=== PATIENT | female | born 1945 | race Caucasian/White ===

== ENCOUNTER 2017-10-13 15:21 | Inpatient (IN) | payer MEDICARE ==
[~2017-10-13] VITALS: Ht 165.1 cm; Wt 85.6 kg
[2017-10-13 16:09] VITALS: BP 170/72; PULSE 84; RESP 18; TEMP 98.6; O2SAT 100
[2017-10-13] MEDS ORDERED: SODIUM CHLOR 0.9% 1000 ML INJ 1,000 ML IV SCH (17:01)
[2017-10-13] MEDS ORDERED: AMLO5TAB2 PO (17:13)
[2017-10-13] MEDS ORDERED: CYAN1TAB24 PO (17:13)
[2017-10-13] MEDS ORDERED: APIX5TAB PO (17:13)
[2017-10-13] MEDS ORDERED: VITA250C3 CHEW (17:13)
[2017-10-13] MEDS ORDERED: CALC600T55 CHEW (17:13)
[2017-10-13] MEDS ORDERED: GLUC100013 (17:13)
[2017-10-13] MEDS ORDERED: MULT-65 PO (17:13)
[2017-10-13] MEDS ORDERED: BIOT10TA PO (17:13)
[2017-10-13] MEDS ORDERED: SODIUM CHLORIDE 0.9% FLUSH 10 ML FLUSH IV FLUSH PRN ×2 (17:15→21:00)
[2017-10-13] MEDS ORDERED: LOVA20TA PO (17:30)
[2017-10-13 17:33] LABS: BILIRUBIN, URINE NEG (NEG); BLOOD, URINE NEG (NEG); GLUCOSE,URINE NEG (NEG); KETONE, URINE TRACE mg/dL (NEG); NITRITE,URINE NEG (NEG); PH, URINE 5.5 (5.0-8.5); URINE COLOR YELLOW (YELLW/STRAW); URINE LEUKOCYTE ESTERASE NEG (NEG)
[2017-10-13 17:41] LABS: CHLORIDE 105 MEQ/L (98-107); SODIUM (NA) 137 MEQ/L (136-145)
[2017-10-13 17:44] LABS: TRANSITIONAL EPI CELLS, URINE 0-5 /hpf
[2017-10-13 17:45] LABS: ALBUMIN 3.6 GM/DL (3.4-5.0); BICARBONATE 22.6 MEQ/L (21.0-32.0); BLOOD UREA NITROGEN 11 MG/DL (7-18); CALCIUM 9.5 MG/DL (8.5-10.1); GLUCOSE,RANDOM 90 MG/DL (74-106)
[2017-10-13 17:48] LABS: ALT (GPT) 16 U/L (10-53); AST (GOT) 16 U/L (15-37); CREATININE 0.81 MG/DL (0.50-1.00); GLOMERULAR FILTRATION RATE 69 ML/MIN (>89)
[2017-10-13 17:50] LABS: TOTAL BILIRUBIN ADULT 1.3 MG/DL (0.2-1.0); TOTAL PROTEIN 7.3 GM/DL (6.4-8.2)
[2017-10-13 17:51] LABS: ALKALINE PHOSPHATASE 70 U/L (45-117)
[2017-10-13 17:52] LABS: AUTOMATED NEUTROPHIL # 7.6 TH/MM3 (1.8-7.7); BASOPHIL # 0.1 TH/MM3 (0-0.2); BASOPHIL % 1.1 % (0.0-2.0); EOSINOPHIL % 0.4 % (0.0-4.0); HEMATOCRIT 36.2 % (35.0-46.0); LYMPH % 13.8 % (9.0-44.0); LYMPHOCYTE # 1.3 TH/MM3 (1.0-4.8); MEAN CELL VOLUME 93.5 FL (80.0-100.0); MEAN CORPUSCULAR HEMOGLOBIN 30.9 PG (27.0-34.0); MEAN PLATELET VOLUME 9.2 FL (7.0-11.0); MONO % 5.6 % (0.0-8.0); MONOCYTE # 0.5 TH/MM3 (0-0.9); NEUT % 79.1 % (16.0-70.0); PLATELET COUNT 199 TH/MM3 (150-450); RED BLOOD COUNT 3.88 MIL/MM3 (4.00-5.30); RED CELL DISTRIBUTION WIDTH 12.3 % (11.6-17.2); WHITE BLOOD COUNT 9.5 TH/MM3 (4.0-11.0)
[2017-10-13 18:20] VITALS: BP 138/59; PULSE 72; RESP 16; O2SAT 96
--- NOTE | 2017-10-13 18:49 | PD ---
HPI Chief Complaint: Abdominal Pain Time Seen by Provider: 16:56 Travel History International Travel<30 days: No Contact w/Intl Traveler<30days: No Traveled to known affect area: No History of Present Illness HPI 72-year-old female arrives with abdominal pain in the left lower quadrant. She has had chills and nausea. She denies diarrhea and vomiting. Duration is been about 3 days. The pain is constant and worse with palpation. She's had no bloody stool. Patient has no urinary complaint. PFSH Social History Tobacco Use: No Allergies-Medications (Allergen,Severity, Reaction): Coded Allergies: Penicillins (Verified Allergy, Unknown, 10/13/17) Reported Meds & Prescriptions Reported Meds & Active Scripts Active Reported Lovastatin 20 Mg Tab 20 Mg PO DAILY Multi-Vitamin Daily (Multiple Vitamin) 1 Tab Tab 1 Tab PO DAILY Amlodipine (Amlodipine Besylate) 5 Mg Tab 5 Mg PO DAILY Eliquis (Apixaban) 5 Mg Tab 5 Mg PO BID B12 (Cyanocobalamin) 1,000 Mcg Tab 1,000 Mcg PO BID Calcium + D3 (Calcium Carbonate-Vitamin D) 600-200 Mg-Unit Tab 1 Tab CHEW BID Glucosamine (Glucosamine Sulfate) 1,000 Mg Cap 2,000 Mg BID Vitamin C (Ascorbic Acid) 250 Mg Chew 1,000 Mg CHEW DAILY Biotin 10 Mg Tab 10 Mg PO DAILY Review of Systems Except as stated in HPI: all other systems reviewed are Neg Physical Exam Narrative GENERAL: 72-year-old female pleasant well-nourished well-developed no acute distress ambulatory Vital Signs Date Time Temp Pulse Resp B/P (MAP) Pulse Ox O2 Delivery O2 Flow Rate FiO2 10/13/17 18:20 72 16 138/59 (85) 96 Room Air 10/13/17 17:05 Room Air 10/13/17 16:09 98.6 84 18 170/72 (104) 100 SKIN: Warm and dry. HEAD: Atraumatic. Normocephalic. EYES: Pupils equal and round. No scleral icterus. No injection or drainage. ENT: No nasal bleeding or discharge. Mucous membranes pink and moist. NECK: Trachea midline. No JVD. CARDIOVASCULAR: Regular rate and rhythm. RESPIRATORY: No accessory muscle use. Clear to auscultation. Breath sounds equal bilaterally. GASTROINTESTINAL: Abdomen is soft. There is tenderness in the all quadrants. MUSCULOSKELETAL: Extremities without clubbing, cyanosis, or edema. No obvious deformities. NEUROLOGICAL: Awake and alert. No obvious cranial nerve deficits. Motor grossly within normal limits. Five out of 5 muscle strength in the arms and legs. Normal speech. PSYCHIATRIC: Appropriate mood and affect; insight and judgment normal. Data Data Last Documented VS Vital Signs Date Time Temp Pulse Resp B/P (MAP) Pulse Ox O2 Delivery O2 Flow Rate FiO2 10/13/17 19:00 20 10/13/17 19:00 70 131/62 (85) 100 10/13/17 18:20 Room Air 10/13/17 16:09 98.6 Orders Orders Complete Blood Count With Diff (10/13/17 17:01) Comprehensive Metabolic Panel (10/13/17 17:01) Lipase (10/13/17 17:) Urinalysis - C+S If Indicated (10/13/17 17:01) Ct Abd/Pel W Iv Contrast(Rout) (10/13/17 17:01) Iv Access Insert/Monitor (10/13/17 17:01) Ecg Monitoring (10/13/17 17:01) Oximetry (10/13/17 17:01) Sodium Chlor 0.9% 1000 Ml Inj (Ns 1000 M (10/13/17 17:01) Iohexol 350 Inj (Omnipaque 350 Inj) (10/13/17 19:16) Lactic Acid (10/13/17 20:07) Blood Culture (10/13/17 20:07) Ciprofloxacin 400 Mg Premix (Cipro 400 M (10/13/17 20:15) Metronidazole 500 Mg Inj (Flagyl 500 Mg (10/13/17 20:15) Place In Observation (10/13/17 ) Vital Signs (Adult) Q4H (10/13/17 20:46) Activity Oob With Assistance (10/13/17 20:46) Mortgage Loan Reviewer / Telemetry .CONTINUOUS (10/13/17 20:46) Diet Npo (10/14/17 Breakfast) Sodium Chlor 0.45% 1000 Ml Inj (1/2 Ns 1 (10/13/17 21:00) Sodium Chloride 0.9% Flush (Ns Flush) (10/13/17 21:00) Sodium Chloride 0.9% Flush (Ns Flush) (10/13/17 21:00) Ondansetron Inj (Zofran Inj) (10/13/17 21:00) Basic Metabolic Panel (Bmp) (10/14/17 06:00) Complete Blood Count With Diff (10/14/17 06:00) Pt Request For Service (10/13/17 20:46) Case Management Consult (10/13/17 20:46) Naloxone Inj (Narcan Inj) (10/13/17 21:00) Ciprofloxacin 400 Mg Premix (Cipro 400 M (10/14/17 09:00) Metronidazole 500 Mg Inj (Flagyl 500 Mg (10/14/17 02:00) Invasive Rad Dept Consult (10/13/17 ) Admit Order (Ed Use Only) (10/13/17 ) Mortgage Loan Reviewer / Telemetry [email or web address] (10/13/17 20:50) Activity Oob With Assistance (10/13/17 20:50) Notify Dr: Other (10/13/17 20:50) Labs Laboratory Tests Test 10/13/17 17:10 10/13/17 17:20 10/13/17 20:15 Urine Color YELLOW Urine Turbidity CLEAR Urine pH 5.5 Urine Specific [place] LESS/EQUAL 1.005 Urine Protein NEG mg/dL Urine Glucose (UA) NEG mg/dL Urine Ketones TRACE mg/dL Urine Occult Blood NEG Urine Nitrite NEG Urine Bilirubin NEG Urine Urobilinogen 0.2 MG/DL Urine Leukocyte Esterase NEG Urine Transitional Epithelial Cells 0-5 /hpf Microscopic Urinalysis Comment CULT NOT INDICATED White Blood Count 9.5 TH/MM3 Red Blood Count 3.88 MIL/MM3 Hemoglobin 12.0 GM/DL Hematocrit 36.2 % Mean Corpuscular Volume 93.5 FL Mean Corpuscular Hemoglobin 30.9 PG Mean Corpuscular Hemoglobin Concent 33.0 % Red Cell Distribution Width 12.3 % Platelet Count 199 TH/MM3 Mean Platelet Volume 9.2 FL Neutrophils (%) (Auto) 79.1 % Lymphocytes (%) (Auto) 13.8 % Monocytes (%) (Auto) 5.6 % Eosinophils (%) (Auto) 0.4 % Basophils (%) (Auto) 1.1 % Neutrophils # (Auto) 7.6 TH/MM3 Lymphocytes # (Auto) 1.3 TH/MM3 Monocytes # (Auto) 0.5 TH/MM3 Eosinophils # (Auto) 0.0 TH/MM3 Basophils # (Auto) 0.1 TH/MM3 CBC Comment DIFF FINAL Differential Comment Blood Urea Nitrogen 11 MG/DL Creatinine 0.81 MG/DL Random Glucose 90 MG/DL Total Protein 7.3 GM/DL Albumin 3.6 GM/DL Calcium Level 9.5 MG/DL Alkaline Phosphatase 70 U/L Aspartate Amino Transf (AST/SGOT) 16 U/L Alanine Aminotransferase (ALT/SGPT) 16 U/L Total Bilirubin 1.3 MG/DL Sodium Level 137 MEQ/L Potassium Level 3.9 MEQ/L Chloride Level 105 MEQ/L Carbon Dioxide Level 22.6 MEQ/L Anion Gap 9 MEQ/L Estimat Glomerular Filtration Rate 69 ML/MIN Lipase 107 U/L Lactic Acid Level 0.8 mmol/L MDM Medical Decision Making Medical Screen Exam Complete: Yes Emergency Medical Condition: Yes Differential Diagnosis Gastritis, pancreatitis, appendicitis, acute cholecystitis, ascending cholangitis, AAA, perforated viscous, mesenteric ischemia, hepatitis, cystitis, hydronephrosis/hydroureter/nephroureter calculus, mesenteric adenitis, biliary colic Narrative Course CBC & BMP Diagram 10/13/17 17:20 Total Protein 7.3, Albumin 3.6, Calcium Level 9.5, Alkaline Phosphatase 70, Aspartate Amino Transf (AST/SGOT) 16, Alanine Aminotransferase (ALT/SGPT) 16, Total Bilirubin 1.3 H Lipase is 107 Urinalysis no UTI Case discussed with the oncoming provider at 7 PM. Estuardo Bond MD Oct 13, 2017 18:49
[2017-10-13 19:00] VITALS: BP 131/62; PULSE 70; RESP 20; O2SAT 100
[2017-10-13] MEDS ORDERED: IOHEXOL 350 MG/ML 10 ML VIAL (for RAD DIAG) IVCONTRAST ONE (19:16)
--- NOTE | 2017-10-13 19:20 | PD ---
Physical Exam Date Seen by Provider: Oct 13, 2017 Time Seen by Provider: 19:19 Narrative Accepted in transfer of care from Dr. Bond General: Well-developed well-nourished female no acute distress or respiratory distress resting comfortably on stretcher; GCS 15 Data Data Last Documented VS Vital Signs Date Time Temp Pulse Resp B/P (MAP) Pulse Ox O2 Delivery O2 Flow Rate FiO2 10/13/17 18:20 72 16 138/59 (85) 96 Room Air 10/13/17 16:09 98.6 Orders Orders Complete Blood Count With Diff (10/13/17 17:01) Comprehensive Metabolic Panel (10/13/17 17:01) Lipase (10/13/17 17:01) Urinalysis - C+S If Indicated (10/13/17 17:01) Ct Abd/Pel W Iv Contrast(Rout) (10/13/17 17:01) Iv Access Insert/Monitor (10/13/17 17:01) Ecg Monitoring (10/13/17 17:01) Oximetry (10/13/17 17:01) Sodium Chlor 0.9% 1000 Ml Inj (Ns 1000 M (10/13/17 17:01) Iohexol 350 Inj (Omnipaque 350 Inj) (10/13/17 19:16) Lactic Acid (10/13/17 20:07) Blood Culture (10/13/17 20:07) Ciprofloxacin 400 Mg Premix (Cipro 400 M (10/13/17 20:15) Metronidazole 500 Mg Inj (Flagyl 500 Mg (10/13/17 20:15) Place In Observation (10/13/17 ) Vital Signs (Adult) Q4H (10/13/17 20:46) Activity Oob With Assistance (10/13/17 20:46) Hospice Clinical Manager / Telemetry .CONTINUOUS (10/13/17 20:46) Diet Npo (10/14/17 Breakfast) Sodium Chlor 0.45% 1000 Ml Inj (1/2 Ns 1 (10/13/17 21:00) Sodium Chloride 0.9% Flush (Ns Flush) (10/13/17 21:00) Sodium Chloride 0.9% Flush (Ns Flush) (10/13/17 21:00) Ondansetron Inj (Zofran Inj) (10/13/17 21:00) Basic Metabolic Panel (Bmp) (10/14/17 06:00) Complete Blood Count With Diff (10/14/17 06:00) Pt Request For Service (10/13/17 20:46) Case Management Consult (10/13/17 20:46) Naloxone Inj (Narcan Inj) (10/13/17 21:00) Ciprofloxacin 400 Mg Premix (Cipro 400 M (10/14/17 09:00) Metronidazole 500 Mg Inj (Flagyl 500 Mg (10/14/17 02:00) Invasive Rad Dept Consult (10/13/17 ) Admit Order (Ed Use Only) (10/13/17 ) Hospice Clinical Manager / Telemetry [email or web address] (10/13/17 20:50) Activity Oob With Assistance (10/13/17 20:50) Notify Dr: Other (10/13/17 20:50) Labs Laboratory Tests Test 10/13/17 17:10 10/13/17 17:20 10/13/17 20:15 Urine Color YELLOW Urine Turbidity CLEAR Urine pH 5.5 Urine Specific [place] LESS/EQUAL 1.005 Urine Protein NEG mg/dL Urine Glucose (UA) NEG mg/dL Urine Ketones TRACE mg/dL Urine Occult Blood NEG Urine Nitrite NEG Urine Bilirubin NEG Urine Urobilinogen 0.2 MG/DL Urine Leukocyte Esterase NEG Urine Transitional Epithelial Cells 0-5 /hpf Microscopic Urinalysis Comment CULT NOT INDICATED White Blood Count 9.5 TH/MM3 Red Blood Count 3.88 MIL/MM3 Hemoglobin 12.0 GM/DL Hematocrit 36.2 % Mean Corpuscular Volume 93.5 FL Mean Corpuscular Hemoglobin 30.9 PG Mean Corpuscular Hemoglobin Concent 33.0 % Red Cell Distribution Width 12.3 % Platelet Count 199 TH/MM3 Mean Platelet Volume 9.2 FL Neutrophils (%) (Auto) 79.1 % Lymphocytes (%) (Auto) 13.8 % Monocytes (%) (Auto) 5.6 % Eosinophils (%) (Auto) 0.4 % Basophils (%) (Auto) 1.1 % Neutrophils # (Auto) 7.6 TH/MM3 Lymphocytes # (Auto) 1.3 TH/MM3 Monocytes # (Auto) 0.5 TH/MM3 Eosinophils # (Auto) 0.0 TH/MM3 Basophils # (Auto) 0.1 TH/MM3 CBC Comment DIFF FINAL Differential Comment Blood Urea Nitrogen 11 MG/DL Creatinine 0.81 MG/DL Random Glucose 90 MG/DL Total Protein 7.3 GM/DL Albumin 3.6 GM/DL Calcium Level 9.5 MG/DL Alkaline Phosphatase 70 U/L Aspartate Amino Transf (AST/SGOT) 16 U/L Alanine Aminotransferase (ALT/SGPT) 16 U/L Total Bilirubin 1.3 MG/DL Sodium Level 137 MEQ/L Potassium Level 3.9 MEQ/L Chloride Level 105 MEQ/L Carbon Dioxide Level 22.6 MEQ/L Anion Gap 9 MEQ/L Estimat Glomerular Filtration Rate 69 ML/MIN Lipase 107 U/L Lactic Acid Level 0.8 mmol/L [facility] Medical Record Reviewed: Yes Supervised Visit with TU: No Interpretation(s) Lactic acid: 0.8 not elevated Last Impressions Abdomen/Pelvis CT 10/13/17 1701 Signed Impressions: Service Date/Time: Friday, October 13, 2017 19:11 - CONCLUSION: 1. Severe sigmoid diverticulitis with probable 1.9 cm diverticular abscess present. Gabo Evans MD CBC & BMP Diagram 10/13/17 17:20 Total Protein 7.3, Albumin 3.6, Calcium Level 9.5, Alkaline Phosphatase 70, Aspartate Amino Transf (AST/SGOT) 16, Alanine Aminotransferase (ALT/SGPT) 16, Total Bilirubin 1.3 H Vital Signs Date Time Temp Pulse Resp B/P (MAP) Pulse Ox O2 Delivery O2 Flow Rate FiO2 10/13/17 18:20 72 16 138/59 (85) 96 Room Air 10/13/17 17:05 Room Air 10/13/17 16:09 98.6 84 18 170/72 (104) 100 Urinalysis: Grossly normal range Differential Diagnosis Accepted in transfer of care from Dr. Bond; please refer to his dictation Narrative Course Accepted in transfer of care from Dr. Bond for follow up of labs and disposition Patient informed of imaging results and plan for admission and is agreeable to observation admission IV antibiotics administered Physician Communication Physician Communication Discussed with [facility] MD Dr Hopkins --OBS Diagnosis Primary Impression: Abscess of sigmoid colon due to diverticulitis Admitting Information Admitting Physician Requests: Observation Lisset Parkinson MD Oct 13, 2017 19:20
--- NOTE | 2017-10-13 20:05 | RADRPT ---
EXAM DATE/TIME: 10/13/2017 19:11 [facility] COMPARISON: No previous studies available for comparison. INDICATIONS : Left lower quadrant abdominal pain. IV CONTRAST: 100 cc Omnipaque 350 (iohexol) IV ORAL CONTRAST: No oral contrast ingested. RADIATION DOSE: 15.15 CTDIvol (mGy) MEDICAL HISTORY : Diverticulitis. SURGICAL HISTORY : None. ENCOUNTER: Initial ACUITY: 1 day PAIN SCALE: 5/10 LOCATION: Left lower quadrant abdomen TECHNIQUE: Volumetric scanning of the abdomen and pelvis was performed. Using automated exposure control and ad justment of the mA and/or kV according to patient size, radiation dose was kept as low as reasonably achievable to obtain optimal diagnostic quality images. DICOM format image data is available electro nically for review and comparison. FINDINGS: There is mural thickening of the sigmoid colon extending over a length of about 8 cm with multiple di verticula and perisigmoid inflammatory changes characteristic of an acute diverticulitis. There is a suspected proximally 1.9 cm diverticular abscess near the midline. Probable 3.3 cm fibroid uterus. Lung bases are clear. No acute findings in the liver. 2 cm suspected cyst posterior right lobe liver. Spleen, adrenals, kidneys and pancreas unremarkable. No calcified gallstones. No biliary ductal dila tation. CONCLUSION: 1. Severe sigmoid diverticulitis with probable 1.9 cm diverticular abscess present. Gabo Evans MD on October 13, 2017 at 19:58 Board Certified Radiologist. This report was verified electronically.
[2017-10-13] MEDS ORDERED: metroNIDAZOLE 500 MG INJ 100 ML IV ONE (20:15)
[2017-10-13] MEDS ORDERED: CIPROFLOXACIN 400 MG PREMIX 200 ML IV ONE (20:15)
[2017-10-13 21:00] VITALS: BP 153/74; PULSE 66; RESP 20; O2SAT 98
[2017-10-13] MEDS ORDERED: ONDANSETRON HCL 4 MG/2 ML VIAL IVP PRN (21:00)
[2017-10-13] MEDS ORDERED: NALOXONE HCL 0.4 MG/ML AMP IV PUSH PRN (21:00)
[2017-10-13] MEDS: SODIUM CHLORIDE 0.9% FLUSH 10 ML FLUSH IV FLUSH SCH (21:00)
[2017-10-13 23:00] VITALS: BP 128/67; PULSE 70; RESP 20; TEMP 99; O2SAT 98
[2017-10-14] VITALS (10 sets, daily range): BP systolic 127–142; BP diastolic 60–66; PULSE 75–82; RESP 16–20; TEMP 97–98.5; O2SAT 94–99
[2017-10-14] MEDS: SODIUM CHLOR 0.45% 1000 ML INJ 1,000 ML IV SCH ×2 (00:56→16:30)
[2017-10-14] MEDS: metroNIDAZOLE 500 MG INJ 100 ML IV SCH ×4 (03:30→21:26)
[2017-10-14 06:14] LABS: AUTOMATED NEUTROPHIL # 5.8 TH/MM3 (1.8-7.7); BASOPHIL # 0.1 TH/MM3 (0-0.2); BASOPHIL % 0.8 % (0.0-2.0); EOSINOPHIL # 0.1 TH/MM3 (0-0.4); EOSINOPHIL % 0.8 % (0.0-4.0); HEMATOCRIT 34.2 % (35.0-46.0); LYMPH % 13.7 % (9.0-44.0); MEAN CELL VOLUME 92.8 FL (80.0-100.0); MEAN CORPUSCULAR HEMOGLOBIN 29.8 PG (27.0-34.0); MEAN CORPUSCULAR HGB CONC 32.1 % (32.0-36.0); MEAN PLATELET VOLUME 8.8 FL (7.0-11.0); MONO % 6.4 % (0.0-8.0); MONOCYTE # 0.5 TH/MM3 (0-0.9); NEUT % 78.3 % (16.0-70.0); PLATELET COUNT 174 TH/MM3 (150-450); RED BLOOD COUNT 3.68 MIL/MM3 (4.00-5.30); RED CELL DISTRIBUTION WIDTH 12.1 % (11.6-17.2); WHITE BLOOD COUNT 7.5 TH/MM3 (4.0-11.0)
[2017-10-14 06:52] LABS: BICARBONATE 23.8 MEQ/L (21.0-32.0); CALCIUM 8.5 MG/DL (8.5-10.1); CREATININE 0.77 MG/DL (0.50-1.00)
[2017-10-14] MEDS: SODIUM CHLORIDE 0.9% FLUSH 10 ML FLUSH IV FLUSH SCH ×2 (07:56→21:00)
[2017-10-14] MEDS: CIPROFLOXACIN 400 MG PREMIX 200 ML IV SCH ×2 (09:29→22:37)
--- NOTE | 2017-10-14 10:00 | RADRPT ---
EXAM DATE/TIME: 10/14/2017 00:00 [facility] COMPARISON: CT ABDOMEN & PELVIS W CONTRAST, October 13, 2017, 19:11. INDICATIONS : Diverticular abscess FINDINGS: The patient is a 72-year-old who underwent CT imaging 10/13/17. This demonstrates a large area of infl ammation and a small abscess in the lower mid pelvis. We are asked to perform CT-guided drainage. The patient's CT scan of 10/13/17 was reviewed. There is no window for percutaneous drain placement in to this fluid collection. CONCLUSION: 1. The patient's diverticular abscess is not amenable to percutaneous CT-guided drainage. Estuardo Urbina MD on October 14, 2017 at 9:55 Board Certified Radiologist. This report was verified electronically.
--- NOTE | 2017-10-14 10:02 | PD.RAD ---
Radiology Note 69 y/o with a low pelvic diverticular abbess. CT scan from 10/13/17 was reviewed. There is no window for placement of a percutaneous drain into the collection. Estuardo Urbina MD Oct 14, 2017 10:02
--- NOTE | 2017-10-14 14:09 | HHI.HP ---
[facility] No Primary Care Physician Admission Diagnosis Acute sigmoid diverticulitis Diagnoses: Chief Complaint: abd pain Travel History International Travel<30 Days: No Contact w/Intl Traveler <30 Da: No Traveled to Known Affected Are: No History of Present Illness 72-year-old female arrives with abdominal pain in the left lower quadrant. She has had chills and nausea. She denies diarrhea and vomiting. Duration is been about 3 days getting progressively worse. Pain is nonradiating. Associated diarrhea on /off 2 weeks. The pain is constant and worse with palpation and any movement pain 10/190. Pain otherwise at 2/10 when at rest. She's had no bloody stool. Patient has no urinary complaint. Denies fever or chills. No n/v/d/c. Review of Systems Except as stated in HPI: all other systems reviewed are Neg Past Family Social History Past Medical History HTN, HLD Past Surgical History Left knee surgery -meniscus Breast implants Reported Medications Reported Meds & Active Scripts Active Reported Lovastatin 20 Mg Tab 20 Mg PO DAILY Multi-Vitamin Daily (Multiple Vitamin) 1 Tab Tab 1 Tab PO DAILY Amlodipine (Amlodipine Besylate) 5 Mg Tab 5 Mg PO DAILY Eliquis (Apixaban) 5 Mg Tab 5 Mg PO BID B12 (Cyanocobalamin) 1,000 Mcg Tab 1,000 Mcg PO BID Calcium + D3 (Calcium Carbonate-Vitamin D) 600-200 Mg-Unit Tab 1 Tab CHEW BID Glucosamine (Glucosamine Sulfate) 1,000 Mg Cap 2,000 Mg BID Vitamin C (Ascorbic Acid) 250 Mg Chew 1,000 Mg CHEW DAILY Biotin 10 Mg Tab 10 Mg PO DAILY Allergies: Coded Allergies: Penicillins (Verified Allergy, Unknown, 10/13/17) Family History Father stroke at age of 59 at the age of 65 Mother arthritis lived to 94 ya Social History No tobacco , EtOH or illicit drug use Physical Exam Vital Signs Vital Signs Date Time Temp Pulse Resp B/P (MAP) Pulse Ox O2 Delivery O2 Flow Rate FiO2 10/14/17 11:50 98.5 80 20 127/60 (82) 99 10/14/17 10:21 78 3/22/18 08:16 10/14/17 07:50 97.9 78 20 138/63 (88) 98 10/14/17 07:15 16 10/14/17 07:10 98.3 78 16 135/65 (88) 97 Room Air 10/14/17 06:40 75 20 137/62 (87) 98 10/14/17 05:33 78 20 142/64 (90) 99 10/14/17 01:00 78 20 132/64 (86) 98 10/13/17 23:00 99.0 70 20 128/67 (87) 98 10/13/17 21:00 66 20 153/74 (100) 98 10/13/17 19:00 20 10/13/17 19:00 70 20 131/62 (85) 100 10/13/17 18:20 72 16 138/59 (85) 96 Room Air 10/13/17 17:05 Room Air 10/13/17 16:09 98.6 84 18 170/72 (104) 100 Physical Exam GENERAL: This is a well-nourished, well-developed patient, in no apparent distress. SKIN: No rashes, ecchymoses or lesions. Cool and dry. HEAD: Atraumatic. Normocephalic. No temporal or scalp tenderness. EYES: Pupils equal round and reactive. Extraocular motions intact. No scleral icterus. No injection or drainage. ENT: Nose without bleeding, purulent drainage or septal hematoma. Throat without erythema, tonsillar hypertrophy or exudate. Uvula midline. Airway patent. NECK: Trachea midline. No JVD or lymphadenopathy. Supple, nontender, no meningeal signs. CARDIOVASCULAR: Regular rate and rhythm without murmurs, gallops, or rubs. RESPIRATORY: Clear to auscultation. Breath sounds equal bilaterally. No wheezes , rales, or rhonchi. GASTROINTESTINAL: Abdomen soft, mid pelvic pain , left lower abd pain on palpation, nondistended. No hepato-splenomegaly, or palpable masses. No guarding. MUSCULOSKELETAL: Extremities without clubbing, cyanosis, or edema. No joint tenderness, effusion, or edema noted. No calf tenderness. Negative Homans sign bilaterally. NEUROLOGICAL: Awake and alert. Cranial nerves II through XII intact. Motor and sensory grossly within normal limits. Five out of 5 muscle strength in all muscle groups. Normal speech. Laboratory Laboratory Tests Test 10/13/17 17:10 10/13/17 17:20 10/13/17 20:15 10/14/17 06:00 Urine Color YELLOW Urine Turbidity CLEAR Urine pH 5.5 Urine Specific [place] LESS/EQUAL 1.005 Urine Protein NEG Urine Glucose (UA) NEG Urine Ketones TRACE Urine Occult Blood NEG Urine Nitrite NEG Urine Bilirubin NEG Urine Urobilinogen 0.2 Urine Leukocyte Esterase NEG Urine Transitional Epithelial Cells 0-5 Microscopic Urinalysis Comment CULT NOT INDICATED White Blood Count 9.5 7.5 Red Blood Count 3.88 3.68 Hemoglobin 12.0 11.0 Hematocrit 36.2 34.2 Mean Corpuscular Volume 93.5 92.8 Mean Corpuscular Hemoglobin 30.9 29.8 Mean Corpuscular Hemoglobin Concent 33.0 32.1 Red Cell Distribution Width 12.3 12.1 Platelet Count 199 174 Mean Platelet Volume 9.2 8.8 Neutrophils (%) (Auto) 79.1 78.3 Lymphocytes (%) (Auto) 13.8 13.7 Monocytes (%) (Auto) 5.6 6.4 Eosinophils (%) (Auto) 0.4 0.8 Basophils (%) (Auto) 1.1 0.8 Neutrophils # (Auto) 7.6 5.8 Lymphocytes # (Auto) 1.3 1.0 Monocytes # (Auto) 0.5 0.5 Eosinophils # (Auto) 0.0 0.1 Basophils # (Auto) 0.1 0.1 CBC Comment DIFF FINAL AUTO DIFF Differential Comment AUTO DIFF CONFIRMED Blood Urea Nitrogen 11 9 Creatinine 0.81 0.77 Random Glucose 90 82 Total Protein 7.3 Albumin 3.6 Calcium Level 9.5 8.5 Alkaline Phosphatase 70 Aspartate Amino Transf (AST/SGOT) 16 Alanine Aminotransferase (ALT/SGPT) 16 Total Bilirubin 1.3 Sodium Level 137 140 Potassium Level 3.9 3.7 Chloride Level 105 107 Carbon Dioxide Level 22.6 23.8 Anion Gap 9 9 Estimat Glomerular Filtration Rate 69 73 Lipase 107 Lactic Acid Level 0.8 Platelet Estimate NORMAL Platelet Morphology Comment NORMAL Red Cell Morphology Comment NORMAL Date/Time Source Procedure Growth Status 10/13/17 20:20 Blood Peripheral Aerobic Blood Culture - Preliminary NO GROWTH IN 1 DAY Resulted 10/13/17 20:20 Blood Peripheral Anaerobic Blood Culture - Preliminary NO GROWTH IN 1 DAY Resulted Result Diagram: 10/14/17 0600 10/14/17 0600 Imaging Last Impressions Consultation 10/14/17 0000 Signed Impressions: Service Date/Time: September 00:00 - CONCLUSION: 1. The patient's diverticular abscess is not amenable to percutaneous CT-guided drainage. Estuardo Urbina MD Abdomen/Pelvis CT 10/13/17 1701 Signed Impressions: Service Date/Time: Friday, October 13, 2017 19:11 - CONCLUSION: 1. Severe sigmoid diverticulitis with probable 1.9 cm diverticular abscess present. MD Macy Enriquez VTE Risk Assessment Caprini VTE Risk Assessment: Mod/High Risk (score >= 2) Caprini Risk Assessment Model Point Value = 1 Point Value = 2 Point Value = 3 Point Value = 5 Age 41-60 Minor surgery BMI > 25 kg/m2 Swollen legs Varicose veins or History of unexplained or recurrent spontaneous Oral contraceptives or hormone replacement Sepsis (< 1 month) Serious lung disease, including pneumonia (< 1 month) Abnormal pulmonary function Acute myocardial infarction Congestive heart failure (< 1 month) History of inflammatory bowel disease Medical patient at bed rest Age 61-74 Arthroscopic surgery Major open surgery (> 45 min) Laparoscopic surgery (> 45 min) Malignancy Confined to bed (> 72 hours) Immobilizing plaster cast Central venous access Age >= 75 History of VTE Family history of VTE Factor V Leiden Prothrombin [id number] Lupus anticoagulant Anticardiolipin antibodies Elevated serum homocysteine Heparin-induced thrombocytopenia Other congenital or acquired thrombophilia Stroke (< 1 month) Elective arthroplasty Hip, pelvis, or leg fracture Acute spinal cord injury (< 1 month) Prophylaxis Regimen Total Risk Factor Score Risk Level Prophylaxis Regimen 0-1 Low Early ambulation 2 Moderate Order ONE of the following: *Sequential Compression Device (SCD) *Heparin 5000 units SQ BID 3-4 Higher Order ONE of the following medications: *Heparin 5000 units SQ TID *Enoxaparin/Lovenox 40 mg SQ daily (WT < 150 kg, CrCl > 30 mL/min) *Enoxaparin/Lovenox 30 mg SQ daily (WT < 150 kg, CrCl > 10-29 mL/min) *Enoxaparin/Lovenox 30 mg SQ BID (WT < 150 kg, CrCl > 30 mL/min) AND/OR *Sequential Compression Device (SCD) 5 or more Highest Order ONE of the following medications: *Heparin 5000 units SQ TID (Preferred with Epidurals) *Enoxaparin/Lovenox 40 mg SQ daily (WT < 150 kg, CrCl > 30 mL/min) *Enoxaparin/Lovenox 30 mg SQ daily (WT < 150 kg, CrCl > 10-29 mL/min) *Enoxaparin/Lovenox 30 mg SQ BID (WT < 150 kg, CrCl > 30 mL/min) AND *Sequential Compression Device (SCD) Assessment and Plan Assessment and Plan 72-year-old who presented with abdominal pain, underwent CT imaging 10/13/17 showing large area of inflammation and a small abscess in the lower mid pelvis. IR consulted to perform CT-guided drainage. Discussed with Dr Carlitos SCHULTZ, patient's diverticular abscess is not amenable to percutaneous CT-guided drainage, consult gen surgery spoke with Dr Saxena Abd pain 2/2 abscess in the lower mid pelvis CT reviewed showing large area of inflammation and a small abscess in the lower mid pelvis. IR consulted to perform CT-guided drainage. Discussed with Dr Carlitos SCHULTZ, patient' s diverticular abscess is not amenable to percutaneous CT-guided drainage, consult gen surgery spoke with Dr Saxena npo until seen by gen surg advance diet per surgeon pain meds per pain scale antiemetics prn Restart home meds as appropriate DVT ppx with SCD/TEDs Discussed Condition With pt, nurse Physician Certification 2 Midnight Certification Type: Admission for Inpatient Services Order for Inpatient Services The services are ordered in accordance with Medicare regulations or non- Medicare payer requirements, as applicable. In the case of services not specified as inpatient-only, they are appropriately provided as inpatient services in accordance with the 2-midnight benchmark. Estimated LOS (days): 3 days is the estimated time the patient will need to remain in the hospital, assuming treatment plan goals are met and no additional complications. Post-Hospital Plan: Magali Jensen MD Oct 14, 2017 14:09
[2017-10-14] MEDS ORDERED: MORPHINE SULFATE 2 MG/ML INJ IV PUSH PRN (21:45)
[2017-10-15] VITALS (7 sets, daily range): BP systolic 122–154; BP diastolic 58–85; PULSE 64–80; RESP 18–20; TEMP 96.1–98.5; O2SAT 95–100
[2017-10-15] MEDS: SODIUM CHLOR 0.45% 1000 ML INJ 1,000 ML IV SCH ×2 (02:57→10:06)
[2017-10-15] MEDS: metroNIDAZOLE 500 MG INJ 100 ML IV SCH ×4 (02:57→21:47)
[2017-10-15] MEDS ORDERED: METR-1 PO (08:17)
[2017-10-15] MEDS ORDERED: LEVA750T9 PO (08:17)
--- NOTE | 2017-10-15 08:18 | HHI.DS ---
Discharge Summary Admission Date Oct 14, 2017 at 14:09 Discharge Date: Oct 16, 2017 Admitting Diagnosis Acute sigmoid diverticulitis (1) Abscess of sigmoid colon due to diverticulitis ICD Code: K57.20 - Diverticulitis of large intestine with perforation and abscess without bleeding Status: Acute Procedures No procedures Brief History - From Admission 72-year-old female arrives with abdominal pain in the left lower quadrant. She has had chills and nausea. She denies diarrhea and vomiting. Duration is been about 3 days getting progressively worse. Pain is nonradiating. Associated diarrhea on /off 2 weeks. The pain is constant and worse with palpation and any movement pain 10/190. Pain otherwise at 2/10 when at rest. She's had no bloody stool. Patient has no urinary complaint. Denies fever or chills. No n/v/d/c. CBC/BMP: 10/14/17 0600 10/14/17 0600 Significant Findings Laboratory Tests Test 10/13/17 17:10 10/13/17 17:20 10/13/17 20:15 10/14/17 06:00 Urine Ketones TRACE mg/dL (NEG) Red Blood Count 3.88 MIL/MM3 (4.00-5.30) 3.68 MIL/MM3 (4.00-5.30) Neutrophils (%) (Auto) 79.1 % (16.0-70.0) 78.3 % (16.0-70.0) Total Bilirubin 1.3 MG/DL (0.2-1.0) Estimat Glomerular Filtration Rate 69 ML/MIN (>89) 73 ML/MIN (>89) Hemoglobin 11.0 GM/DL (11.6-15.3) Hematocrit 34.2 % (35.0-46.0) Imaging Last Impressions Consultation 10/14/17 0000 Signed Impressions: Service Date/Time: September 00:00 - CONCLUSION: 1. The patient's diverticular abscess is not amenable to percutaneous CT-guided drainage. Estuardo Urbina MD Abdomen/Pelvis CT 10/13/17 1701 Signed Impressions: Service Date/Time: Friday, October 13, 2017 19:11 - CONCLUSION: 1. Severe sigmoid diverticulitis with probable 1.9 cm diverticular abscess present. Gabo Evans MD PE at Discharge GENERAL: This is a well-nourished, well-developed patient, in no apparent distress. CARDIOVASCULAR: Regular rate and rhythm without murmurs, gallops, or rubs. RESPIRATORY: Clear to auscultation. Breath sounds equal bilaterally. No wheezes , rales, or rhonchi. GASTROINTESTINAL: Abdomen soft, mid pelvic pain , left lower abd pain on palpation, nondistended. No hepato-splenomegaly, or palpable masses. No guarding. MUSCULOSKELETAL: Extremities without clubbing, cyanosis, or edema. No joint tenderness, effusion, or edema noted. No calf tenderness. Negative Homans sign bilaterally. NEUROLOGICAL: Awake and alert. Cranial nerves II through XII intact. Motor and sensory grossly within normal limits. Five out of 5 muscle strength in all muscle groups. Normal speech. Pt update on day of discharge The patient is in bed she appears to not acute distress. Says pain is controlled by pain medications that she is taking by mouth. No nausea vomiting no diarrhea or constipation. She is tolerating food. No fever or chills. Feels comfortable and wants to go home today. Hospital Course 72-year-old who presented with abdominal pain, underwent CT imaging 10/13/17 showing large area of inflammation and a small abscess in the lower mid pelvis. IR consulted to perform CT-guided drainage. Discussed with Dr Urbina IR, patient's diverticular abscess is not amenable to percutaneous CT-guided drainage, consult gen surgery spoke with Dr Hemanth Oneal pain 2/2 abscess in the lower mid pelvis CT reviewed showing large area of inflammation and a small abscess in the lower mid pelvis. IR consulted to perform CT-guided drainage. Discussed with Dr Carlitos SCHULTZ, patient' s diverticular abscess is not amenable to percutaneous CT-guided drainage, consult gen surgery spoke with Dr Hemanth helton until seen by gen surg advance diet per surgeon. Advance diet as tolerated. pain meds per pain scale antiemetics prn Restart home meds as appropriate Patient to receive IV abx. DC on levaquin and flagyl for 10 days.To follow up with PCP and surgeon as OP. Patient wants to go back home for surgery Improved. DC home in stable condition to follow up as OP with PCP and consultants. Ordered imaging to be given at discharge. Pt Condition on Discharge: Stable Discharge Disposition: Discharge Home Discharge Time: > 30 minutes Discharge Instructions DIET: Follow Instructions for: Heart Healthy Diet Activities you can perform: Regular-No Restrictions Follow up Referrals: Gastroenterology - 2 Weeks PCP Follow-up - 2-3 Days Surgical - 1 Week New Medications: Hydrocodone-Acetaminophen ([place]) 5 Mg-325 Mg Tab 1 TAB PO Q6H PRN for PAIN, #30 TAB 0 Refills Levofloxacin (Levaquin) 750 Mg Tablet 750 MG PO DAILY for Infection for 10 Days, #10 TAB 0 Refills Metronidazole (Flagyl) 500 Mg Tab 500 MG PO TID for Infection for 10 Days, TAB 0 Refills Continued Medications: Amlodipine (Amlodipine) 5 Mg Tab 5 MG PO DAILY for Blood Pressure Management, #30 TAB 0 Refills Apixaban (Eliquis) 5 Mg Tab 5 MG PO BID for Blood Clot Prevention, #60 TAB 0 Refills Ascorbic Acid (Vitamin C) 250 Mg Chew 1000 MG CHEW DAILY for Nutritional Supplement, #30 TAB 0 Refills Biotin (Biotin) 10 Mg Tab 10 MG PO DAILY for Nutritional Supplement, #1 BOTTLE 0 Refills Calcium Carbonate-Vitamin D (Calcium + D3) 600-200 Mg-Unit Tab 1 TAB CHEW BID, TAB Cyanocobalamin (B12) 1,000 Mcg Tab 1000 MCG PO BID Glucosamine (Glucosamine) 1,000 Mg Cap 2000 MG BID for Herbal Supplements, CAP 0 Refills Lovastatin (Lovastatin) 20 Mg Tab 20 MG PO DAILY for Cholesterol Management, #30 TAB 0 Refills Multiple Vitamin (Multi-Vitamin Daily) 1 Tab Tab 1 TAB PO DAILY for Nutritional Supplement, TAB 0 Refills Magali Sinclair MD Oct 15, 2017 08:18
[2017-10-15] MEDS ORDERED: NORC5TAB PO (08:19)
--- NOTE | 2017-10-15 08:21 | HHI.PR ---
Subjective Remarks In bed she appears to not acute distress at this time. Still with some abdominal pain especially when she is moving. Wants to try to eat today. No fever or chills. No nausea or vomiting. Had a normal bowel movement in the morning Objective Vitals Vital Signs Date Time Temp Pulse Resp B/P (MAP) Pulse Ox O2 Delivery O2 Flow Rate FiO2 10/15/17 04:00 97.9 80 20 130/60 (83) 96 10/15/17 00:00 98.5 73 20 124/59 (80) 97 10/14/17 20:15 78 10/14/17 20:00 97.0 82 20 135/66 (89) 94 10/14/17 15:50 97.7 80 20 142/62 (88) 99 10/14/17 11:50 98.5 80 20 127/60 (82) 99 10/14/17 10:21 78 I/O 10/14/17 10/14/17 10/14/17 10/15/17 10/15/17 10/15/17 07:00 15:00 23:00 07:00 15:00 23:00 Intake Total 1400 ml 300 ml 1100 ml 900 ml Balance 1400 ml 300 ml 1100 ml 900 ml Intake Oral 0 ml 0 ml IV Total 1400 ml 300 ml 1100 ml 900 ml # Voids 4 3 # Bowel Movements 0 1 Result Diagram: 10/14/17 0600 10/14/17 0600 Imaging Last Impressions Consultation 10/14/17 0000 Signed Impressions: Service Date/Time: September 00:00 - CONCLUSION: 1. The patient's diverticular abscess is not amenable to percutaneous CT-guided drainage. Estuardo Urbina MD Abdomen/Pelvis CT 10/13/17 1701 Signed Impressions: Service Date/Time: Friday, October 13, 2017 19:11 - CONCLUSION: 1. Severe sigmoid diverticulitis with probable 1.9 cm diverticular abscess present. Gabo Evans MD Objective Remarks GENERAL: This is a well-nourished, well-developed patient, in no apparent distress. CARDIOVASCULAR: Regular rate and rhythm without murmurs, gallops, or rubs. RESPIRATORY: Clear to auscultation. Breath sounds equal bilaterally. No wheezes , rales, or rhonchi. GASTROINTESTINAL: Abdomen soft, mid pelvic pain , left lower abd pain on palpation, nondistended. No hepato-splenomegaly, or palpable masses. No guarding. MUSCULOSKELETAL: Extremities without clubbing, cyanosis, or edema. No joint tenderness, effusion, or edema noted. No calf tenderness. Negative Homans sign bilaterally. NEUROLOGICAL: Awake and alert. Cranial nerves II through XII intact. Motor and sensory grossly within normal limits. Five out of 5 muscle strength in all muscle groups. Normal speech. A/P Assessment and Plan 72-year-old who presented with abdominal pain, underwent CT imaging 10/13/17 showing large area of inflammation and a small abscess in the lower mid pelvis. IR consulted to perform CT-guided drainage. Discussed with Dr Carlitos SCHULTZ, patient's diverticular abscess is not amenable to percutaneous CT-guided drainage, consult gen surgery spoke with Dr Hemanth Oneal pain 2/2 abscess in the lower mid pelvis CT reviewed showing large area of inflammation and a small abscess in the lower mid pelvis. IR consulted to perform CT-guided drainage. Discussed with Dr Carlitos SCHULTZ, patient' s diverticular abscess is not amenable to percutaneous CT-guided drainage, consult gen surgery spoke with Dr Saxena npo until seen by gen surg advance diet per surgeon. Advance diet as tolerated. pain meds per pain scale antiemetics prn Restart home meds as appropriate Patient to receive IV abx and can be DC in 1 or 2 days if pain improving. DC on levaquin and flagyl for 10 days./ To follow up with PCP and surgeon as OP. Patient wants to go back home for surgery DVT ppx with SCD/TEDs Discussed Condition With pt, nurse, Dr Saxena surg Magali Sinclair MD Oct 15, 2017 08:21
--- NOTE | 2017-10-15 09:13 | MB ---
cc: Gabo Saxena MD, Joseph D MD DATE: 10/15/2017 REASON FOR CONSULTATION: Diverticular abscess. HISTORY OF PRESENT ILLNESS: This is a pleasant 72-year-old female who is visiting from [place]. She was recently admitted to the hospital after she had complaints of right lower quadrant pain that had been ongoing. A CT scan revealed a diverticular abscess in the pelvis on the left side. Abscess measured just under 2 cm. She had been treated with antibiotic therapy. She says she had a colonoscopy about 6 years ago [place] in [place] and then had some other stool studies and was told she was clear. She is not sure if she ever had the diagnosis of diverticulosis. She has never had any pain like this before. The radiologists have already commented on this abscess. It is too small and where it is located they cannot drain it. It is very small. OTHER SYMPTOMATOLOGY: She had some chills and nausea. No diarrhea or vomiting. The pain is mainly in the left lower quadrant. PAST MEDICAL HISTORY: Significant for some eye surgery and tonsillectomy. She has a cardiac disorder. 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 She had previous UTIs in the past. She has had some CVAs in the past. No respiratory problems. No endocrine problems. MEDICATIONS: Include Eliquis I suspect she takes for her CVA in the past. She takes some antihypertensives, glucosamine, vitamins and lovastatin. ALLERGIES: ALLERGIC TO PENICILLIN. PHYSICAL EXAM: GENERAL: She is sleeping, but awakens easily and appears to be fairly alert. NECK: Supple. CHEST: Clear, without carotid bruits. HEART: Regular rate. ABDOMEN: Thin and soft, without rebound or guarding. Mild soreness in the left lower quadrant. No appreciable surgical scars. EXTREMITIES: Moves all extremities well without clubbing, cyanosis or edema. LABORATORY DATA: She had a white count of 7, H and H of 11 and 34. Chemistry essentially normal. Urinalysis clear. IMAGING STUDIES: A CT scan of the abdomen shows a 1.9 cm diverticular abscess with diverticulitis. ASSESSMENT: A 72-year-old female with previous history of strokes on Eliquis with diverticulitis being treated with antibiotic therapy. PLAN: At this time, I would continue antibiotic therapy. She wants to go back to [place] if she needs surgery. I told her she may not need surgery depending on the result of the antibiotic therapy. She seems fine with this. At this time clinically, she appears to be progressing on the antibiotic therapy. Gabo Saxena MD JPANCHO/THAIS , 08:12 AM , 09:11 AM
[2017-10-15] MEDS: SODIUM CHLORIDE 0.9% FLUSH 10 ML FLUSH IV FLUSH SCH ×2 (09:48→21:00)
[2017-10-15] MEDS: CIPROFLOXACIN 400 MG PREMIX 200 ML IV SCH ×2 (11:35→21:47)
[2017-10-15] MEDS: APIXABAN 5 MG TABLET PO SCH ×2 (12:00→21:45)
[2017-10-15] MEDS ORDERED: BISACODYL 10 MG SUPP RECTAL PRN (12:30)
[2017-10-15] MEDS ORDERED: ACETAMINOPHEN/HYDROcodone 325 MG/10 MG TAB PO PRN (12:30)
[2017-10-15] MEDS ORDERED: MORPHINE SULFATE 2 MG/ML INJ IV PUSH PRN (12:30)
[2017-10-15] MEDS ORDERED: ACETAMINOPHEN/HYDROcodone 325 MG/5 MG TAB PO PRN (12:30)
[2017-10-15] MEDS ORDERED: MAGNESIUM HYDROXIDE SUSP 30 ML CUP PO PRN (12:30)
[2017-10-15] MEDS ORDERED: NALOXONE HCL 0.4 MG/ML AMP IV PUSH PRN (12:30)
[2017-10-15] MEDS ORDERED: SENNOSIDES 8.6 MG TAB PO PRN (12:30)
[2017-10-15] MEDS ORDERED: LACTULOSE SYRUP 20 GM/30 ML CUP PO PRN (12:30)
[2017-10-15] MEDS: DOCUSATE SODIUM 50 MG/SENNA 8.6 MG TAB PO SCH (21:00)
[2017-10-16 01:04] VITALS: BP 125/59; PULSE 67; RESP 16; O2SAT 98
[2017-10-16] MEDS: metroNIDAZOLE 500 MG INJ 100 ML IV SCH ×3 (01:38→11:03)
[2017-10-16] MEDS: SODIUM CHLOR 0.45% 1000 ML INJ 1,000 ML IV SCH (01:42)
[2017-10-16 04:17] VITALS: BP 119/56; PULSE 62; RESP 16; TEMP 98.1; O2SAT 95
[2017-10-16 08:00] VITALS: BP 144/82; PULSE 65; RESP 16; TEMP 98.3; O2SAT 99
[2017-10-16] MEDS: DOCUSATE SODIUM 50 MG/SENNA 8.6 MG TAB PO SCH (08:31)
[2017-10-16] MEDS: APIXABAN 5 MG TABLET PO SCH (08:32)
[2017-10-16] MEDS: SODIUM CHLORIDE 0.9% FLUSH 10 ML FLUSH IV FLUSH SCH (08:33)
[2017-10-16] MEDS ORDERED: amLODIPine BESYLATE 5 MG TAB PO SCH (09:00)
[2017-10-16] MEDS ORDERED: PRAVASTATIN SOD 20 MG TAB PO SCH (09:00)
[2017-10-16] MEDS: CIPROFLOXACIN 400 MG PREMIX 200 ML IV SCH (09:38)
== END 2017-10-16 12:25 | disposition home or self-care (01) | DRG 392 ==
LOC: PHED 15:21 → PHEDA 20:51 → PHEDH 10-14 00:51 → PH3A 10-14 08:14 → OBSVTOIN 10-14 14:09
PROVIDERS: ADMIT Hospitalist; ATTEND Hospitalist
DX: K57.20 Diverticulitis of large intestine with perforation and abscess without bleeding (principal); I10 Essential (primary) hypertension; E78.5 Hyperlipidemia, unspecified; Z98.82 Breast implant status; Z79.02 Long term (current) use of antithrombotics/antiplatelets; Z86.73 Personal history of transient ischemic attack (TIA), and cerebral infarction without residual deficits; I51.89 Other ill-defined heart diseases
CPT/HCPCS: 74177; 80048; 80053; 81001; 83605; 83690; 85025; 87040; G8987-GP; G8988-GP; J0744; J2270; J7030; Q9967